=== PATIENT | male | born 1950 ===

== ENCOUNTER 2025-04-18 06:26 | Day surgery (SDC) | payer OTHER, SELFPAY ==
[2025-04-18 12:08] LABS: Glucose - Point of Care 110 mg/dl (70-99)
== END 2025-04-18 13:44 | disposition home or self-care (01) ==
LOC: GI 06:26
PROVIDERS: ATTENDING PHYSICIAN Internal Medicine Gastroenterology
DX: Z12.11 Encounter for screening for malignant neoplasm of colon (principal); K57.30 Diverticulosis of large intestine without perforation or abscess without bleeding; K64.8 Other hemorrhoids; K63.5 Polyp of colon; D12.3 Benign neoplasm of transverse colon; D12.4 Benign neoplasm of descending colon; Z86.0101 Personal history of adenomatous and serrated colon polyps
CPT/HCPCS: 45385; 45380; 82962; 88305